=== PATIENT | male | born 1990 | race Caucasian/White ===

== ENCOUNTER 2017-02-21 03:14 | Inpatient (IN) | payer BC, OTHER ==
[~2017-02-21] VITALS: Ht 175.3 cm; Wt 78.9 kg
[2017-02-21] VITALS (27 sets, daily range): BP systolic 125–150; BP diastolic 75–100; PULSE 69–143; TEMP 36.6–37.3; O2SAT 92–100; Ht 175.3 cm; Wt 78.9 kg
[2017-02-21] MEDS ORDERED: RAPID SEQUENCE INDUCTION BAG ONE (03:21)
[2017-02-21] MEDS ORDERED: PROPOFOL IV EMULSION 10 MG/ML 100 ML VIAL IV ONE (03:33)
[2017-02-21] MEDS ORDERED: ASPI-390 PO (03:41)
[2017-02-21] MEDS ORDERED: IBUP-1050 PO (03:41)
[2017-02-21] MEDS ORDERED: PROPOFOL IV EMULSION 10 MG/ML 20 ML VIAL IV ONE (03:42)
[2017-02-21] MEDS ORDERED: PIPERACILLIN/TAZOBACTAM 4.5 GM/100ML D5W IV STA (04:05)
[2017-02-21 04:12] LABS: MEAN CELL VOLUME 84.1 fL (80-100); MEAN CORPUSCULAR HEMOGLOBIN 29.8 pg (25-34); MEAN CORPUSCULAR HGB CONC 35.4 g/dl (32-36); MEAN PLATELET VOLUME 10.1 fL (7.4-10.4); PLATELET COUNT 299 K/uL (130-400); RED BLOOD COUNT 5.71 M/uL (4.7-6.1)
[2017-02-21 04:22] LABS: ALT/SGPT 53 U/L (12-78); AST/SGOT 21 U/L (15-37); BLOOD UREA NITROGEN 6 mg/dl (7-18); BUN/CREATININE RATIO 6.9 (10-20); CALCIUM 7.8 mg/dl (8.5-10.1); CARBON DIOXIDE 24 mmol/L (21-32); CHLORIDE 109 mmol/L (98-107); CREATININE 0.88 mg/dl (0.60-1.40); GLUCOSE 121 mg/dl (70-99); POTASSIUM 3.3 mmol/L (3.5-5.1); SODIUM 142 mmol/L (136-145)
[2017-02-21 04:25] LABS: ALKALINE PHOSPHATASE 79 U/L (45-117)
[2017-02-21] MEDS ORDERED: FENTANYL CITRATE INJ 50 MCG/1 ML 2 ML VIAL IV PRN (04:30)
[2017-02-21] MEDS ORDERED: MAGNESIUM HYDROXIDE SUSP 30 ML UDC PO PRN (04:30)
[2017-02-21] MEDS ORDERED: ONDANSETRON INJ 2 MG/ML 2 ML VIAL IV PRN (04:30)
[2017-02-21] MEDS ORDERED: POTASSIUM CHLORIDE 10 MEQ / 100ML WTR IV ONE (04:30)
[2017-02-21] MEDS ORDERED: LORAZEPAM 2 MG/ML 1 ML VIAL IV PRN (04:30)
[2017-02-21] MEDS ORDERED: ALUMINUM/MAGNESIUM/SIMETH (MAALOX MAX) 30 ML UDC PO PRN (04:30)
[2017-02-21] MEDS ORDERED: ACETAMINOPHEN 325 MG TAB PO PRN (04:30)
[2017-02-21] MEDS ORDERED: MIDAZOLAM 125MG/250ML D5W 250 ML IV PRN (04:31)
[2017-02-21 04:36] LABS: ISTAT ARTERIAL BLOOD GAS HCO3 24 meq/L (19-24); ISTAT ARTERIAL BLOOD GAS PCO2 43 mmHg (35-46); ISTAT ARTERIAL BLOOD GAS PO2 > 420 mmHg (80-95); ISTAT ARTERIAL BLOOD GAS pH 7.36 (7.35-7.45); ISTAT CARBON DIOXIDE 26 mEq/l (24-31)
[2017-02-21 04:43] LABS: ACETAMINOPHEN < 2 ug/ml (10-30)
[2017-02-21] MEDS ORDERED: SODIUM CHLORIDE 0.9% 1000ML 1,000 ML IV SCH (04:45)
--- NOTE | 2017-02-21 04:59 | History and Physical ---
History & Physical Date & Time of Service: Feb 21, 2017 at 04:47 Chief Complaint: alochol Primary Care Physician: No Doctor, Assigned History of Present Illness Source: family (brother) The patient is a 26-year-old male that any past medical history previously emergency with acute alcohol intoxication. The patient is intubated at this time, not such that history is obtained from his brother Roldan, who also lives with Sandro. His brother states that Sandro was in his usual state of health this evening. After he arrived home the 2 of them had an after work beer. David was brother and went to the bathroom and upon his arrival back in the living room, he noted that his brother was chugging an entire bottle of Rum. Roldan requested that his brother trying to throw up, otherwise there will be problems however Sandro refused. Over time Sandro became progressively more more somnolent and was beginning to stumble and eventually passed out. Initially he was breathing and appeared comfortable, and his brother turned him over and put him in the recovery position. However over a period of approximately 30 minutes, he noticed that Sandro was having episodes of apnea, and was seeming to have more difficult in breathing. He then started vomiting and vomitus came out of both his mouth and his nose. EMS was called and Sandro was brought to the hospital for further evaluation. Of note, Roldan states that Sandro's behavior is extremely out of character. However he did note that whenever Sandro drinks, he seems to have difficulty controlling the amount that he drinks. However and he states that Sandro does not drink frequently. He is unaware of any life stressors for Sandro at this time. At no point did Sandro express any intent to harm himself or any suicidal ideation. At any history of drug or alcohol abuse, and has never has never been diagnosed psychiatric condition. In the ED intubation was a challenge, as there was copious amounts of vomitus in the airway, even following intubation it was noted that there were old or kernels being aspirated from the tube. The ET-tube had to be removed and reinserted twice. Was markedly distended on arrival, and NG and OG tube are both attempted but were unsuccessfully passed. Emergency Department spoken to the critical care service and the decision made to admit the patient to the intensive care unit for further treatment. Past Medical/Surgical History Lens injury to left eye, secondary to trauma Lens replacement Family History Noncontributory Social History Smoking Status: Never Smoker Smokeless Tobacco Use: No Alcohol Use: heavy Drug Use: other (unknown) Marital Status: single Housing status: lives with family (Brother) Occupational Status: employed Immunizations History of Influenza Vaccine: Unknown History of Tetanus Vaccine?: Unknown History of Pneumococcal: Unknown History of Hepatitis B Vaccine: Unknown Multi-Drug Resistant Organisms History of MDRO: No Allergies Coded Allergies: No Known Allergies (Unverified , 02/21/17) Home Medications Scheduled PRN Gvdhmuk-Afiogbmpkfzya-Fglznmgl (Excedrin Migraine), 1 DOSE PO DIRECTED PRN for Headache Ibuprofen (Advil), 200-600 MG PO Q4H PRN for Pain Review of Systems 10 point Review of systems could not be obtained as the patient is sedated and intubated Physical Exam Vital Signs Date Time Temp Pulse Resp B/P (MAP) Pulse Ox O2 Delivery O2 Flow Rate FiO2 02/21/17 04:32 30 02/21/17 04:21 36.5 73 12 127/95 98 Mechanical Ventilator 30 02/21/17 03:41 113 General Appearance: WD/WN, no apparent distress Head: normocephalic, atraumatic Eyes: + pertinent finding (Aniscora; abnormal lens left eye, secondary to previous surgery) ENT: + pertinent finding (difficult to assess as patient is intubated) Neck: supple, no adenopathy, no JVD Respiratory/Chest: chest non-tender, + pertinent finding (markedly diminished breath sounds on the left side with coarse breath sounds on the left) Cardiovascular: regular rate, rhythm, no gallop, no murmur Abdomen/GI: normal bowel sounds, non tender, soft Back: no CVA tenderness, no muscle spasm Extremities/Musculoskelatal: no calf tenderness, no pedal edema Neurologic/Psych: + pertinent finding (sedated; CAM ICU could not be assessed; RASS -4) Skin: normal color, warm/dry, no rash Lymphatic: no adenopathy Diagnostics Laboratory Results Results Past 24 Hours Test 02/21/17 03:40 02/21/17 03:50 02/21/17 04:22 02/21/17 04:37 Range/Units White Blood Count 8.00 4.8-10.8 K/uL Red Blood Count 5.71 4.7-6.1 M/uL Hemoglobin 17.0 14.0-18.0 g/dL Hematocrit 48.0 42-52 % Mean Corpuscular Volume 84.1 80-100 fL Mean Corpuscular Hemoglobin 29.8 25-34 pg Mean Corpuscular Hemoglobin Concent 35.4 32-36 g/dl RDW Standard Deviation 38.0 36.4-46.3 fL RDW Coefficient of Variation 12.6 11.5-14.5 % Platelet Count 299 130-400 K/uL Mean Platelet Volume 10.1 7.4-10.4 fL Sodium Level 142 136-145 mmol/L Potassium Level 3.3 3.5-5.1 mmol/L Chloride Level 109 98-107 mmol/L Carbon Dioxide Level 24 21-32 mmol/L Anion Gap 9.0 3-11 mmol/L Blood Urea Nitrogen 6 7-18 mg/dl Creatinine 0.88 0.60-1.40 mg/dl Estimated GFR () 138.4 Estimated GFR (Non- 119.4 BUN/Creatinine Ratio 6.9 10-20 Random Glucose 121 70-99 mg/dl Calcium Level 7.8 8.5-10.1 mg/dl Total Bilirubin 0.5 0.2-1 mg/dl Direct Bilirubin 0.1 0-0.2 mg/dl Aspartate Amino Transf (AST/SGOT) 21 15-37 U/L Alanine Aminotransferase (ALT/SGPT) 53 12-78 U/L Alkaline Phosphatase 79 45-117 U/L Total Protein 7.7 6.4-8.2 gm/dl Albumin 4.4 3.4-5.0 gm/dl Salicylates Level < 1.7 2.8-20 mg/dl Acetaminophen Level < 2 10-30 ug/ml Ethyl Alcohol mg/dL 473.0 0-3 mg/dl Bedside Blood Gas pH (LAB) 7.36 7.35-7.45 Bedside Blood Gas pCO2 (LAB) 43 35-46 mmHg Bedside Blood Gas pO2 (LAB) > 420 80-95 mmHg Bedside Blood Gas HCO3 (LAB) 24 19-24 meq/L Bedside Blood Gas Total CO2 26 24-31 mEq/l Bedside Blood Gas Base Excess (LAB) -1.0 -9-1.8 meq/L Bedside Blood Gas O2 Saturation 100.0 90-95 % Microbiology Results 02/21/17 Blood Culture, Ordered Pending 02/21/17 Blood Culture, Ordered Pending 02/21/17 Blood Culture, Ordered Pending 02/21/17 Blood Culture, Ordered Pending 02/21/17 MRSA DNA Surveillance Screen, Ordered Pending Diagnostic Radiology Marked past location of left lung field Impression Assessment and Plan 26-year-old male being admitted to the intensive care unit for acute alcohol intoxication with secondary aspiration pneumonia versus pneumonitis. His problem list is as follows: 1 - acute alcohol intoxication 2 - aspiration pneumonia versus aspiration pneumonitis 3 - acute hypoxemic respiratory failure 4 - hypokalemia 5 - hyperglycemia 6 - hypocalcemia Our plan for him is as follows: NEUROLOGICAL - GCS: 3 CAM ICU could not be obtained as the patient is intubated and sedated - Sedation: Versed infusion - RASS: Goal -1 - Pain regimen: Fentanyl 25 mcg q1h PRN Pain CARDIAC - BP: 127/95 MAP: Goal > 65 - Vasopressor support: None indicated at this time - IV Fluids: NSS bolus in the ED Will start NSS + 20 mEq KCl RESPIRATORY - Intubated and mechanically ventilated AC Mode: Rate 12; FiO2 30%; PEEP 5; VT 550 Aspiration Pneumonia - IV Zosyn 3.375 TID - DuoNeb's every 4 hours - Per ICU team, may require bronchoscopy for extensive emesis being aspiration with solid contents noted to be coming out of ET tube GASTROINTESTINAL - Diet: NPO - GI Prophylaxis: Ranitidine 150 mg BID - Bowel regimen: Monitor for BM - OG and NG tube insertion was attempted multiple times in the ER and was unsuccessful; will re-attempt later today RENAL//ENDOCRINE - Fluid Balance: Monitor I/O - Cr: 0.88, Baseline unknown - Electrolytes: K 3.3 --> 2 x 10 mEq K-riders in the ED; will continue with NSS + 20 mEq KCl maintenance Ca 7.8 --> 1 g Calcium Gluconate - IV Fluids: NSS bolus int he ED NSS + 20 mEq KCl Maintenance - BS, monitor q6h HEME/ID - Tmax: Afebrile WBC: 8 - Hb/Hct 17/48 - Blood cultures pending - Antibiotics: Zosyn 3.375 TID Day 0 - DVT Prophylaxis: Heparin 5000 U TID LINES/IV ACCESS - 2 x 18 G in left arm - Hernandez catheter inserted to gravity CODE STATUS - Full Code DISPOSITION - OT/PT Ordered - ICU Attending Addendum: I have physically seen and examined this patient, have supervised the medical residents activities, and agree with the H&P as noted above with the following exceptions as noted. The patient is sedated, intubated and on the ventilator. HEENT--PERRL, EOMI, mucous membranes and oropharynx dry. Neck-- no JVD or bruits, thyroid normal, trachea midline, no adenopathy. Heart--normal S1 and S2, no extra beats, no murmurs, rubs or gallops. Lungs--coarse breath sounds bilaterally. Abdomen--normal bowel sounds and soft, mildly distended and tympanitic, no hernias or masses, no organomegaly. Extremities--no cyanosis, clubbing or edema. There are good distal pulses b/l. Dermatologic--normal skin turgor, normal color, warm and dry, no abnormal lymph nodes, no rash. Neurologic--cranial nerves II through XII grossly intact, motor and sensory examination normal. Rheumatologic--deferred Psychiatric--deferred Assessment and Plan: Acute respiratory failure with hypoxemia/aspiration pneumonitis/acute alcohol intoxication-- Admitted to ICU with a vent settings AC, rate 12, tidal volume 550, FiO2 30%, and PEEP of 5. Zosyn 3.375 mg IV every 6 hours. Will likely need bronchoscopy as corn and other partially digested foods were found by ED staff during intubation. Famotidine 20 mg IV every 12 hours. Ordered 10 mEq K- riders in the ED 2. Normal saline with KCl 20 mEq at 100 ML's per hour. Serial laboratories to include daily CBC with differential, chemistry profile, magnesium level, ABG. Versed infusion for sedation. Fentanyl IV when necessary for additional sedation and/or pain. Level of Care Critical Care Advanced Directives Existing Advance Directive: No Existing Living Will: No Existing Power of Data Steward: No Resuscitation Status FULL RESUSCITATION VTE Prophylaxis VTE Risk Assessment Done? Y/N: Yes Risk Level: Moderate Given or contraindicated: SCD's Note Total Time: Critical Care 30 - 74 minutes (Duonebs every 4 hours while awake and every 2 hours when necessary.)
[2017-02-21] MEDS ORDERED: CALCIUM GLUCONATE 10% 1,000 MG in SODIUM CHLORIDE 0.9% 50ML 50 ML IV SCH (05:30)
[2017-02-21] MEDS ORDERED: PIPERACILL/TAZOBAC CONSULT ACTIVE PRN (05:45)
[2017-02-21] MEDS: NSS + 20MEQ KCL 1000ML 1,000 ML IV SCH ×3 (05:57→20:10)
[2017-02-21] MEDS ORDERED: HEPARIN SOD 5000 UNIT/0.5 ML CARP SQ SCH (06:00)
[2017-02-21 06:01] LABS: PROTHROMBIN TIME (PATIENT) 10.7 SECONDS (9.0-12.0)
[2017-02-21 06:09] LABS: MAGNESIUM 2.4 mg/dl (1.8-2.4)
[2017-02-21] MEDS ORDERED: ACETAMINOPHEN IV 100 ML IV PRN (06:45)
[2017-02-21] MEDS ORDERED: INFLUENZA ADMINISTRATION CHARGE ONE (06:45)
[2017-02-21] MEDS ORDERED: INFLUENZA VIRUS QUAD VACCINE 0.5 ML SYR IM. ONE (06:45)
--- NOTE | 2017-02-21 07:12 | DIAGNOSTIC IMAGING REPORT ---
CHEST ONE VIEW PORTABLE CLINICAL HISTORY: Post intubation. COMPARISON STUDY: No previous studies for comparison. FINDINGS: The tip of the endotracheal tube is 2.2 cm above the lokesh. An additional tube projects over the upper mediastinum, just to the left of midline. This may reflect a nasogastric tube. The position of the tube is not clear on this exam but this may be within the proximal thoracic esophagus. Left perihilar opacity is noted with left basilar opacity, with air bronchograms. There is also indistinctness of the aortic knob with left upper lobe opacity. Right infrahilar opacity is noted. There is no evidence of pulmonary edema. Cardiac size is at the upper limits of normal and accentuated on this portable supine exam. IMPRESSION: 1. Tip of endotracheal tube 2.2 cm above the lokesh. 2. Additional tube projecting over the upper mediastinum, just to the left of midline. This may reflect a nasogastric tube. The position of the tube is not clear on this exam but may be within the proximal thoracic esophagus. Repositioning is recommended. 3. Extensive bilateral opacities, greater on the left. The distribution suggests aspiration. 4. Mediastinal widening with indistinctness of the aortic knob. This could be technical or related to consolidation. However, radiographic follow up is recommended. Electronically signed by: Loc Lee M.D. 02/21/2017 7:10 AM Dictated Date/Time: 02/21/2017 7:02 AM
[2017-02-21] MEDS: ALBUT/IPRATROP 3MG/0.5MG NEB 3 ML VIAL INH SCH ×4 (07:26→23:18)
--- NOTE | 2017-02-21 07:29 | EMERGENCY ROOM VISIT NOTE ---
History Report prepared by Mora: Jose Ramon Tapia Under the Supervision of: Dr. Chey Everett D.O. First contact with patient: 03:16 Chief Complaint: ALCOHOL OVERDOSE Stated Complaint: ALCOHOL OVERDOSE, ASPIRATION INTO AIRWAY Nursing Triage Summary: pts family member states pt drank 2/3 to a 3/4 of a 750 ml bottle of kradaphnieen rum. pt arrived via ems unconsious. gasping breaths. with brown oral emesis. History of Present Illness The patient is a 26 year old male who presents to the Emergency Room for an alcohol overdose occurring around 0030 this morning. Per EMS, the patient drank 75% of a 750ml bottle of 95 proof rum in about a minute. Per the EMS, the patient has been vomiting, unresponsive, and wheezing. The brother states that the patient originally drank one drink of rum and coke, and this is normal for him. However, afterwards the patient took the bottle and chugged it and would not put it down. The brother tried to get the patient to vomit, however he was unsuccessful. The patient has no psychiatric history, and he has no medical history other than a left eye injury in the past. Source of History: patient Onset: 0030 Position: other (global) Quality: other (alcohol overdose) Associated Symptoms: + vomiting Note: Associated symptoms: unresponsive and wheezing Review of Systems See HPI for pertinent positives & negatives. A total of 10 systems reviewed and were otherwise negative. Past Medical & Surgical Medical Problems: (1) Alcohol overdose (2) Aspiration into airway Social History Smoking Status: Current Every Day Smoker Smokeless Tobacco Use: No Drug Use: other (unknown) Marital Status: single Occupation Status: employed Current/Historical Medications Scheduled PRN Xcgtnfa-Qsqjzbozjamzg-Mufbxiem (Excedrin Migraine), 1 DOSE PO DIRECTED PRN for Headache Ibuprofen (Advil), 200-600 MG PO Q4H PRN for Pain Allergies Coded Allergies: No Known Allergies (Unverified , 02/21/17) Physical Exam Vital Signs Date Time Temp Pulse Resp B/P (MAP) Pulse Ox O2 Delivery O2 Flow Rate FiO2 02/21/17 04:21 36.5 73 12 127/95 98 Mechanical Ventilator 30 02/21/17 03:41 113 Physical Exam Gen.: The patient is vomiting and appears to be in moderate respiratory distress with tachypnea. He is unresponsive to verbal and painful stimuli. HEENT: Head - normocephalic and atraumatic Pupils are 3 mm on the right and sluggishly responsive to light. He has a prosthesis in the left eye. Extraocular eye muscles are intact, and sclera are anicteric. Nose - moist nasal mucosa without discharge. Mouth - moist buccal mucosa. Oropharynx is nonerythematous and there is no tonsillar exudate or edema noted. Neck: Supple; no cervical lymphadenopathy appreciated Heart: Tachycardic rate and regular rhythm. There is a normal S1 and S2 with no murmurs, clicks, or gallops appreciated. Lungs: Clear to auscultation bilaterally with no wheezes, rales, or rhonchi. Abdomen: Soft, completely nontender, nondistended, with good bowel sounds. There are no palpable pulsatile masses or hepatosplenomegaly. There is no guarding, rigidity, or rebound noted. Extremities: No evidence of cyanosis, clubbing, or edema. There are easily palpable peripheral pulses. Skin: Pale, warm and dry with good turgor and no rashes. Medical Decision & Procedures ER Provider Diagnostic Interpretation: X-ray results as stated below per interpretation by me: CHEST ONE VIEW PORTABLE 1: The initial intubation appeared to be in the right mainstem bronchus. With obvious opacities in the left lung and underinflation of the left lung. There is a huge gastric bubble. CHEST ONE VIEW PORTABLE 2: The to him was pulled back proximally 2 cm but still appeared to be in the right mainstem bronchus. There was obvious aspiration evidenced by opacities bilaterally. The gastric bubble remains huge. CHEST ONE VIEW PORTABLE 3: The endotracheal tube was 2 cm above the lokesh. It appears that the OG tube is just to the left of the trachea presumably in the midesophagus. There are bilateral opacities consistent with aspiration. The stomach appears to be slightly decompressed. Laboratory Results 02/21/17 03:40 02/21/17 03:40 Test 02/21/17 03:40 02/21/17 03:50 02/21/17 04:22 Red Blood Count 5.71 M/uL (4.7-6.1) Mean Corpuscular Volume 84.1 fL (80-100) Mean Corpuscular Hemoglobin 29.8 pg (25-34) Mean Corpuscular Hemoglobin Concent 35.4 g/dl (32-36) RDW Standard Deviation 38.0 fL (36.4-46.3) RDW Coefficient of Variation 12.6 % (11.5-14.5) Mean Platelet Volume 10.1 fL (7.4-10.4) Prothrombin Time 10.7 SECONDS (9.0-12.0) Prothromb Time International Ratio 1.0 (0.9-1.1) Anion Gap 9.0 mmol/L (3-11) Estimated GFR () 138.4 Estimated GFR (Non- 119.4 BUN/Creatinine Ratio 6.9 (10-20) Calcium Level 7.8 mg/dl (8.5-10.1) Magnesium Level 2.4 mg/dl (1.8-2.4) Total Bilirubin 0.5 mg/dl (0.2-1) Direct Bilirubin 0.1 mg/dl (0-0.2) Aspartate Amino Transf (AST/SGOT) 21 U/L (15-37) Alanine Aminotransferase (ALT/SGPT) 53 U/L (12-78) Alkaline Phosphatase 79 U/L (45-117) Total Protein 7.7 gm/dl (6.4-8.2) Albumin 4.4 gm/dl (3.4-5.0) Salicylates Level < 1.7 mg/dl (2.8-20) Acetaminophen Level < 2 ug/ml (10-30) Ethyl Alcohol mg/dL 473.0 mg/dl (0-3) Bedside Blood Gas pH (LAB) 7.36 (7.35-7.45) Bedside Blood Gas pCO2 (LAB) 43 mmHg (35-46) Bedside Blood Gas pO2 (LAB) > 420 mmHg (80-95) Bedside Blood Gas HCO3 (LAB) 24 meq/L (19-24) Bedside Blood Gas Total CO2 26 mEq/l (24-31) Bedside Blood Gas Base Excess (LAB) -1.0 meq/L (-9-1.8) Bedside Blood Gas O2 Saturation 100.0 % (90-95) Laboratory results per my review. Medications Administered Medications (Trade) Dose Ordered Sig/Jade Route Start Time Stop Time Status Last Admin Dose Admin Miscellaneous (Rapid Sequence Induction Bag) 1 ea STK-MED ONCE N/A 02/21/17 03:21 02/21/17 03:22 DC 02/21/17 04:19 1 EA Propofol (Diprivan Iv Emulsion 100ml Vial) 1 dose STK-MED ONCE IV 02/21/17 03:33 02/21/17 03:34 DC 02/21/17 04:18 1 DOSE Propofol (Diprivan Iv Emulsion 20ml Vial) 200 mg STK-MED ONCE IV 02/21/17 03:42 02/21/17 03:43 DC 02/21/17 04:19 50 MG Piperacillin Sod/ Tazobactam Sod (Zosyn Iv) 4.5 gm NOW STAT IV 02/21/17 04:05 02/21/17 04:06 DC 02/21/17 04:15 4.5 GM Potassium Chloride (Kcl 10 Meq / Wtr) 20 meq STK-MED ONCE IV 02/21/17 04:30 02/21/17 04:31 DC 02/21/17 04:40 20 MEQ Procedure Etomidate, propofol bolus, propofol drip, Zosyn, normal saline drip Endotracheal Intubation Indication respiratory failure and vomiting. The patient was on 100% oxygen via NRB with nasal airway in place prior to the procedure. Suction, airway equipment, RSI drugs, respiratory equipment, and appropriate personnel were prepared prior to the initiation of the procedure. A time out was taken. The patient was sedate enough that he did not require any additional sedation The airway was easily visualized utilizing a glide scope. The patient had additional episodes of vomiting. We had to suction Imbler kernels from the patient's vocal cords and trachea. A 8-0 size ETT tube was placed atraumatically to 26 cm using standard technique. The cuff inflated without signs of malfunction. There were bilateral breath sounds, positive colormetric change, no gastric sounds, and post procedure pulse oximetry was 88% . Post intubation sedation was administered using etomidate IV. There were no complications. Endotracheal Intubation Indication: inadvertent extubation. The patient was on 97% oxygen via BVM prior to the procedure. Suction, airway equipment, RSI drugs, respiratory equipment, and appropriate personnel were prepared prior to the initiation of the procedure. A time out was taken. Induction was performed with IV propofol bolus. After observing the clinical benefit of the medications, the airway was easily visualized utilizing a glide scope. A 8-0 size ETT tube was placed atraumatically to 24 cm using standard technique. The cuff inflated without signs of malfunction. There were bilateral breath sounds, positive colormetric change, no gastric sounds, a good capnography waveform, and post procedure pulse oximetry was 97%. Post intubation sedation was administered using Propofol There were no complications. ED Course 0316: Past medical records reviewed. The patient was evaluated in room B4. A complete history and physical exam was performed. The patient was observing the radiation monitor. He was noted to be in moderate respiratory distress with significant tachypnea. The decision was made for endotracheal intubation. He was moved to B1. 0321: Equipment was prepared for intubation. A second IV lock was established. Once the patient was successfully intubated, he was given 30 mg of IV etomidate. He was observing the radiation monitor and pulse oximeter. His O2 saturations remained marginal. Chest x-ray showed evidence of a right mainstem intubation with evidence of aspiration in the left lung and a huge gastric bubble. The tube was pulled back. PEEP was added to the ventilator settings. The patient was aggressively suctioned. O2 saturations remained at 78-84. At this time, the vocal cords were visualized and it appeared that the endotracheal tube had become dislodged. This one was removed. The patient received bag valve ventilation until O2 saturations were in the high 90s. Repeat endotracheal intubation was performed after the patient received a bolus of diprovan. follow-up chest x-ray was performed. 0352: Discussed the patient's case with Dr. Shanks, [facility]. The blood alcohol content was excessively high. 0357: Discussed the patient's case with Dr. Jasmine, [facility] [place]. The patient will be evaluated for further management. 0405: Zosyn 4.5mg IV 0450: I reevaluated the patient. Medical Decision The patient is a 26 year old male who presents to the ED with an alcohol overdose. Differential diagnosis includes alcohol overdose, drug intoxication, aspiration, and respiratory failure. Lab results show: white blood cell count of 8, stable H&H, normal renal function , glucose 121, lactic acid 1.8, LFT are nromal, alcohol 473, salicylate lass than 1.7, acetaminophen less than 2, and normal coags. The patient presents to the emergency department in an unresponsive state with respiratory failure. This required emergent endotracheal intubation the and had significant food in his airway. This was removed with suction. The patient was observed closely and his status was reviewed with his brother. Brother was in contact with the parents. The patient was started on IV Zosyn for aspiration. He remains hemodynamically stable. He will be admitted to ICU. Consults Time Called: 035 Consulting Physician: Dr. Shanks, [employer] [facility] Returned Call: [phone] Discussed the patient's case with Dr. Shanks, [employer] [facility]. Additional Consults: Time Called: 035 Consulted Physician: Dr. Jasmine Returned Call: 035 Additional Comments: Discussed the patient's case with Dr. Jasmine, [facility] [place]. The patient will be evaluated for further management. Impression Primary Impression: Aspiration into airway Additional Impression: Alcohol overdose Critical Care I have personally spent greater than 90 minutes of critical care time in the direct management of this patient. This includes bedside care, interpretation of diagnostic studies, and testing, discussion with consultants, patient, and family members, and other required patient management activities. This 90 minutes is in excess of all separately billable procedures. Scribe Attestation The scribe's documentation has been prepared under my direction and personally reviewed by me in its entirety. I confirm that the note above accurately reflects all work, treatment, procedures, and medical decision making performed by me. Departure Information Dispostion Being Evaluated By Hospitalist Referrals No Doctor, Assigned (PCP) Forms HOME CARE DOCUMENTATION FORM, IMPORTANT VISIT INFORMATION Patient Instructions My [facility] Health Problem Qualifiers Primary Impression: Aspiration into airway Encounter type: initial encounter Qualified Codes: T17.908A - Unspecified foreign body in respiratory tract, part unspecified causing other injury, initial encounter Additional Impression: Alcohol overdose Encounter type: initial encounter Injury intent: undetermined intent Qualified Codes: T51.94XA - Toxic effect of unspecified alcohol, undetermined, initial encounter
--- NOTE | 2017-02-21 07:46 | Critical Care Consultation ---
Critical Care Consultation Date of Consultation: Feb 21, 2017. Attending Physician: Baltazar Jasmine M.D. Reason for Consultation: Acute respiratory failure following severe alcohol intoxication. History of Present Illness I personally examined this patient, reviewed his clinical and laboratory data, interpret his x-ray and formulated further plan of care. In summary, the patient is a 26-year-old man without any significant medical or psychiatric history we will drunk entire bottle of rum after he returned with his brother to their apartment after work. Patient progressively got somnolent, vomited couple of times with gastric content coming from his mouth and nose. He was brought to [facility] emergency room. Patient was not able to protect his airway so he required to be intubated. He was suctioned of significant food material from endotracheal tube which needed to be changed twice. Patient was transferred critical ill to surgical intensive care unit for further management. Past Medical/Surgical History None Family History Not obtainable. Social History Patient works in [employer] business. He lives with his older brother an apartment. He drinks beer after work times per week. Smoking Status: Current Every Day Smoker Smokeless Tobacco Use: No Alcohol Use: heavy Drug Use: other (unknown) Marital Status: single Occupation Status: employed Allergies Coded Allergies: No Known Allergies (Unverified , 02/21/17) Home Medications Scheduled PRN Qcibcgz-Hfxntluyrgzii-Eztcaztl (Excedrin Migraine), 1 DOSE PO DIRECTED PRN for Headache Ibuprofen (Advil), 200-600 MG PO Q4H PRN for Pain Current Inpatient Medications Current Inpatient Medications Medications (Trade) Dose Ordered Sig/Jade Route Start Time Stop Time Status Last Admin Dose Admin Potassium Chloride/Sodium Chloride 1,000 ml @ 150 mls/hr Q6H40M IV 02/21/17 05:30 03/23/17 05:29 02/21/17 05:57 150 MLS/HR Fentanyl Citrate (Fentanyl Inj) 25 mcg Q1H PRN IV 02/21/17 04:30 03/07/17 04:29 Lorazepam (Ativan Inj) 1 mg Q6H PRN IV 02/21/17 04:30 03/23/17 04:29 Ondansetron HCl (Zofran Inj) 4 mg Q6H PRN IV 02/21/17 04:30 03/23/17 04:29 Albuterol/ Ipratropium (Duoneb) 3 ml Q4R INH 02/21/17 08:00 03/23/17 07:59 02/21/17 07:26 3 ML Midazolam HCl 250 ml @ 0 mls/hr Q0M PRN IV 02/21/17 04:31 03/23/17 04:30 Piperacillin Sod/ Tazobactam Sod 3.375 gm/Dextrose 115 ml @ 28.75 mls/ hr Q8H IV 02/21/17 08:00 02/28/17 07:59 Piperacillin Sod/ Tazobactam Sod (Consult) 1 ea UD PRN N/A 02/21/17 05:45 03/23/17 05:44 Famotidine 20 mg/ Dextrose 102 ml @ 200 mls/hr Q12H IV 02/21/17 07:00 03/23/17 06:59 Acetaminophen 100 ml @ 400 mls/hr Q8H PRN IV 02/21/17 06:45 03/23/17 06:44 Review of Systems Not obtainable as patient is drunk, intubated and sedated. Physical Exam Date Time Temp Pulse Resp B/P (MAP) Pulse Ox O2 Delivery O2 Flow Rate FiO2 02/21/17 07:23 30 02/21/17 06:15 97 20 100 02/21/17 06:01 69 12 136/91 (96) 98 02/21/17 06:00 36.6 80 12 136/91 (106) 100 Mechanical Ventilator 40 02/21/17 06:00 72 14 99 02/21/17 05:45 74 13 98 02/21/17 05:42 36.8 86 24 147/89 95 Mechanical Ventilator 30 02/21/17 05:31 40 02/21/17 05:30 90 24 92 02/21/17 05:29 94 27 147/89 (112) 92 02/21/17 05:23 30 02/21/17 04:56 74 132/92 97 02/21/17 04:32 30 02/21/17 04:21 36.5 73 12 127/95 98 Mechanical Ventilator 30 02/21/17 03:41 113 General Appearance: well-appearing, other (intubated and sedated.) Head: normocephalic, atraumatic Eyes: no discharge, EOMI, other (left pupil is equal secondary to remote trauma and surgical intervention. Right pupil is 3 mm in size and reactive to light.) ENT: normal ear exam Neck: normal range of motion, no tenderness, trachea midline, no stridor Respiratory: clear to percussion, other ( few scattered rhonchi) Cardiovasular: regular rate/rhythm, normal S1S2, no murmur Abdomen: non tender, normal bowel sounds, no rebound, no masses, no guarding, no organomegaly Back: normal inspection, no midline tenderness, no CVA tenderness Upper Extremities: no edema, no deformity, normal ROM Lower Extremities: no edema Neuro: other (intoxicated and sedated. Right pupil was reactive to light.) Laboratory Results Last 24 Hours Test 02/21/17 03:40 02/21/17 03:50 02/21/17 04:22 02/21/17 04:59 White Blood Count 8.00 K/uL Red Blood Count 5.71 M/uL Hemoglobin 17.0 g/dL Hematocrit 48.0 % Mean Corpuscular Volume 84.1 fL Mean Corpuscular Hemoglobin 29.8 pg Mean Corpuscular Hemoglobin Concent 35.4 g/dl RDW Standard Deviation 38.0 fL RDW Coefficient of Variation 12.6 % Platelet Count 299 K/uL Mean Platelet Volume 10.1 fL Prothrombin Time 10.7 SECONDS Prothromb Time International Ratio 1.0 Sodium Level 142 mmol/L Potassium Level 3.3 mmol/L Chloride Level 109 mmol/L Carbon Dioxide Level 24 mmol/L Anion Gap 9.0 mmol/L Blood Urea Nitrogen 6 mg/dl Creatinine 0.88 mg/dl Estimated GFR () 138.4 Estimated GFR (Non- 119.4 BUN/Creatinine Ratio 6.9 Random Glucose 121 mg/dl Calcium Level 7.8 mg/dl Magnesium Level 2.4 mg/dl Total Bilirubin 0.5 mg/dl Direct Bilirubin 0.1 mg/dl Aspartate Amino Transf (AST/SGOT) 21 U/L Alanine Aminotransferase (ALT/SGPT) 53 U/L Alkaline Phosphatase 79 U/L Total Protein 7.7 gm/dl Albumin 4.4 gm/dl Salicylates Level < 1.7 mg/dl Acetaminophen Level < 2 ug/ml Ethyl Alcohol mg/dL 473.0 mg/dl Bedside Blood Gas pH (LAB) 7.36 Bedside Blood Gas pCO2 (LAB) 43 mmHg Bedside Blood Gas pO2 (LAB) > 420 mmHg Bedside Blood Gas HCO3 (LAB) 24 meq/L Bedside Blood Gas Total CO2 26 mEq/l Bedside Blood Gas Base Excess (LAB) -1.0 meq/L Bedside Blood Gas O2 Saturation 100.0 % Bedside Lactic Acid Venous 1.82 mmol/L Test 02/21/17 05:05 Phosphorus Level 2.8 mg/dl Assessment & Plan 1. Severe alcohol intoxication. We'll continue total alcohol gets metabolized. Continue with folic acid and thiamine. 2. Acute respiratory failure for airway protection. Significant fomites and aspiration with food particles being suctioned from endotracheal tube. Bronchoscopy was performed which revealed diffusely inflamed mucosa, minimal secretions, no food particles. 3. Sinus tachycardia, no cardiac ischemia. We will continue with IV fluids and sedation. 4. Renal function is adequate. Replace electrolytes appropriately. 5. ID: No change antibodies to 3 days' course of Unasyn as patient had severe aspiration. 6. Hematology hemoglobin and platelet count is in the range. 7. Psychiatric: Unknown reason for such unusual behavior. No previous history of psychiatric disorder. We'll obtain psychiatric consultation when patient is awake for the interview. 8. Heparin for DVT prophylaxis. 9. GI: Pepcid in view of suspected alcohol-induced esophagitis/gastropathy. I had an extensive conversation about patient's clinical condition and further management plan with his PSA the bedside. Patient is full code. CCT 32 minutes exclusive bronchoscopy procedure.
[2017-02-21] MEDS: FAMOTIDINE IV INJ 20 MG in DEXTROSE 5% 100ML 100 ML IV SCH ×2 (07:57→20:10)
[2017-02-21] MEDS ORDERED: PIPERACILL/TAZOBAC IV 3.375 GM in DEXTROSE 5% 100ML 100 ML IV SCH (08:00)
[2017-02-21] MEDS: THIAMINE HCL INJ 100 MG in SYRINGE 9 ML IV SCH (08:54)
[2017-02-21] MEDS ORDERED: FoLIC ACID INJ 1 MG in SYRINGE 9.8 ML IM SCH (09:00)
[2017-02-21] MEDS ORDERED: RANITIDINE HCL SYRUP 150 MG/10 ML UDC PO SCH (09:00)
[2017-02-21] MEDS: AMPICILLIN/SULBACTAM SOD INJ 3,000 MG in SODIUM CHLORIDE 0.9% 100ML 100 ML IV SCH ×3 (09:03→20:10)
[2017-02-21 11:35] LABS: BENZODIAZEPINE, URINE POS (NEG); COCAINE,URINE NEG (NEG); PHENCYCLIDINE, URINE NEG (NEG)
[2017-02-21] MEDS: FoLIC ACID INJ 1 MG in SYRINGE 9.8 ML IV SCH (11:44)
--- NOTE | 2017-02-21 12:58 | Progress Note ---
Progress Note Date of Service Feb 21, 2017. Progress Note Procedure: Bronchoscopy. Indication: Acute respiratory failure, severe aspiration of gastric content. Sedation. Pre-existing midazolam drip 2 mg/h, 2 mg IV bolus 1 Olympus videobronchoscope was used. After appropriate sedation was obtained, the bronchoscope was inserted through the pre-existing endotracheal tube. Small amount of secretions were suctioned from tracheostomy. Attention was patent to the right upper, middle and lower lobes. Mucosa was inflamed, minimal whitish secretions. Left upper and lower lobes were examined. No food particles were found. Mucosa was inflamed with minimal secretions which were suctioned. Patient tolerated procedure well. I performed the entire procedure myself. Findings were conveyed to the family.
--- NOTE | 2017-02-21 18:33 | Progress Note ---
Progress Note Date of Service Feb 21, 2017. Progress Note f/u from early AM admission still on vent, sedated, but appearing to be doing well d/w dr de la o and greatly appreciate management no new issues updated parents severe EtOH intoxication w aspiration event (probable pneumonitis) and respiratory failure -stabilizing, continue unasyn, hopefully able to wean vent by tomorrow
--- NOTE | 2017-02-21 18:46 | Family Medicine Progress Note ---
Progress Note Date of Service Feb 21, 2017. Subjective Pt evaluation today including: conversation w/ family, physical exam, chart review, review of studies, review of inpatient medication list Voiding: harding catheter in place Mr. Mclaughlin has been sedated & intubated. His parents were at his bedside and conveyed their concerns regarding his recent behaviour. They would eventually like for him to see a psychiatrist which they believe will help prevent this from happening. They state he has a history of binge drinking, but never to this extent. Medications Current Inpatient Medications Medications (Trade) Dose Ordered Sig/Jade Route Start Time Stop Time Status Last Admin Dose Admin Potassium Chloride/Sodium Chloride 1,000 ml @ 150 mls/hr Q6H40M IV 02/21/17 05:30 03/23/17 05:29 02/21/17 11:47 150 MLS/HR Fentanyl Citrate (Fentanyl Inj) 25 mcg Q1H PRN IV 02/21/17 04:30 03/07/17 04:29 02/21/17 10:49 25 MCG Lorazepam (Ativan Inj) 1 mg Q6H PRN IV 02/21/17 04:30 03/23/17 04:29 Ondansetron HCl (Zofran Inj) 4 mg Q6H PRN IV 02/21/17 04:30 03/23/17 04:29 Albuterol/ Ipratropium (Duoneb) 3 ml Q4R INH 02/21/17 08:00 03/23/17 07:59 02/21/17 11:23 3 ML Midazolam HCl 250 ml @ 0 mls/hr Q0M PRN IV 02/21/17 04:31 03/23/17 04:30 Famotidine 20 mg/ Dextrose 102 ml @ 200 mls/hr Q12H IV 02/21/17 07:00 03/23/17 06:59 02/21/17 07:57 200 MLS/HR Acetaminophen 100 ml @ 400 mls/hr Q8H PRN IV 02/21/17 06:45 03/23/17 06:44 Thiamine HCl 100 mg/Syringe 10 ml @ 2 mls/min DAILY@0900 IV 02/21/17 09:00 03/23/17 08:59 02/21/17 08:54 2 MLS/MIN Ampicillin Sodium/ Sulbactam Sodium 3000 mg/Sodium Chloride 108 ml @ 216 mls/hr Q6H IV 02/21/17 09:00 02/24/17 08:59 02/21/17 14:38 216 MLS/HR Folic Acid 1 mg/ Syringe 10 ml @ 5 mls/min DAILY@0900 IV 02/21/17 09:00 03/23/17 08:59 02/21/17 11:44 5 MLS/MIN Objective Vital Signs Date Time Temp Pulse Resp B/P (MAP) Pulse Ox O2 Delivery O2 Flow Rate FiO2 02/21/17 16:00 37.3 114 24 132/81 (98) 100 Nasal Cannula 2.0 02/21/17 16:00 100 Nasal Cannula 2.0 02/21/17 15:28 30 02/21/17 14:20 30 02/21/17 14:00 117 20 128/76 (93) 100 Mechanical Ventilator 40 02/21/17 13:00 106 15 131/87 (104) 100 02/21/17 12:00 100 Mechanical Ventilator 40 02/21/17 12:00 40 02/21/17 12:00 105 16 135/85 (102) 100 Mechanical Ventilator 40 02/21/17 11:15 30 02/21/17 11:00 108 12 125/82 (89) 100 02/21/17 10:00 129 18 134/84 (101) 96 Mechanical Ventilator 40 02/21/17 09:10 139 29 139/88 (105) 99 Mechanical Ventilator 40 02/21/17 09:05 139 19 145/86 (105) 99 Mechanical Ventilator 40 02/21/17 09:00 140 23 147/90 (109) 100 Mechanical Ventilator 40 02/21/17 09:00 140 23 147/90 (114) 100 02/21/17 08:55 143 21 144/100 (115) 100 Mechanical Ventilator 40 02/21/17 08:50 135 24 150/92 (111) 100 Mechanical Ventilator 40 02/21/17 08:45 143 27 144/75 (98) 100 Mechanical Ventilator 40 02/21/17 08:00 37.0 86 12 138/80 (99) 100 Mechanical Ventilator 40 02/21/17 08:00 100 Mechanical Ventilator 40 02/21/17 08:00 Mechanical Ventilator 40 02/21/17 08:00 40 02/21/17 07:23 30 02/21/17 07:00 85 12 132/82 (95) 100 02/21/17 06:15 97 20 100 02/21/17 06:01 69 12 136/91 (96) 98 02/21/17 06:00 36.6 80 12 136/91 (106) 100 Mechanical Ventilator 40 02/21/17 06:00 72 14 99 02/21/17 05:45 74 13 98 02/21/17 05:42 36.8 86 24 147/89 95 Mechanical Ventilator 30 02/21/17 05:31 40 02/21/17 05:30 90 24 92 02/21/17 05:29 94 27 147/89 (112) 92 02/21/17 05:23 30 02/21/17 04:56 74 132/92 97 02/21/17 04:32 30 02/21/17 04:21 36.5 73 12 127/95 98 Mechanical Ventilator 30 02/21/17 03:41 113 Assessment and Plan 26-year-old male admitted for acute alcohol intoxication with secondary aspiration pneumonitis Acute alcohol intoxication resulting in acute hypoxemic respiratory failure - sedated, intubated and mechanically ventilated - AC Mode: Rate 12; FiO2 30%; PEEP 5; VT 550 - continue fluids - NSS + 20 mEq KCl at 150mls/hr - monitor I/Os - continue thiamine and folic acid - possible psych consult when awake to determine nature of this incident Aspiration pneumonia versus aspiration pneumonitis - ampicillin/sulbactum prophylaxis - duonebs q4h - NPO - continue famotidine 20mg q12h - blood cultures pending - bronchoscopy done today - inflamed mucosa, minimal secretions, but no food particles Hypokalemia - 3.3 today - given KCl in maintenance fluids - will recheck tomorrow Hypocalcemia - 7.8 today- 1g calcium gluconate given - will recheck tomorrow CODE STATUS - Full Code DISPOSITION - remains in ICU DVT Prophylaxis: - Heparin 5000 U TID Resident Tracking Resident Involvement: Resident Care Provided Care Provided: Adult Hospital Medicine
[2017-02-22] VITALS (26 sets, daily range): BP systolic 104–149; BP diastolic 60–99; PULSE 71–112; TEMP 36.6–37; O2SAT 93–99
[2017-02-22] MEDS: AMPICILLIN/SULBACTAM SOD INJ 3,000 MG in SODIUM CHLORIDE 0.9% 100ML 100 ML IV SCH ×2 (02:46→08:45)
[2017-02-22] MEDS: NSS + 20MEQ KCL 1000ML 1,000 ML IV SCH ×2 (02:46→07:45)
[2017-02-22] MEDS: ALBUT/IPRATROP 3MG/0.5MG NEB 3 ML VIAL INH SCH ×3 (03:31→11:27)
--- NOTE | 2017-02-22 07:08 | DIAGNOSTIC IMAGING REPORT ---
CHEST ONE VIEW PORTABLE HISTORY: 26 years-old Male aspiration acute aspiration. COMPARISON: Chest radiograph 02/21/2017 TECHNIQUE: Portable upright AP view of the chest FINDINGS: There has been interval removal of the endotracheal tube as well as removal of the tube projecting over the left upper mediastinum. Cardiac silhouette is within normal limits. There is improved aeration of the bilateral lungs with persistent hazy left greater than right patchy opacities, probably within the mid lung zones and lung bases. The previously described mediastinal widening is not appreciated. No pneumothorax or large pleural effusion. Bones are grossly intact. IMPRESSION: 1. Interval removal of the endotracheal tube and tube overlying the left upper chest. 2. Improved aeration of the lungs with persistent patchy left greater than right opacities suggesting aspiration pneumonitis or multifocal pneumonia. The above report was generated using voice recognition software. It may contain grammatical, syntax or spelling errors. Electronically signed by: Trent Cantrell M.D. 02/22/2017 7:07 AM Dictated Date/Time: 02/22/2017 7:04 AM
[2017-02-22] MEDS: FAMOTIDINE IV INJ 20 MG in DEXTROSE 5% 100ML 100 ML IV SCH (07:45)
[2017-02-22] MEDS: THIAMINE HCL INJ 100 MG in SYRINGE 9 ML IV SCH (07:46)
[2017-02-22] MEDS: FoLIC ACID INJ 1 MG in SYRINGE 9.8 ML IV SCH (07:46)
[2017-02-22 08:42] LABS: HEMATOCRIT 38.7 % (42-52); MEAN CELL VOLUME 85.1 fL (80-100); MEAN CORPUSCULAR HEMOGLOBIN 30.3 pg (25-34); MEAN CORPUSCULAR HGB CONC 35.7 g/dl (32-36); PLATELET COUNT 212 K/uL (130-400); RED BLOOD COUNT 4.55 M/uL (4.7-6.1); WHITE BLOOD COUNT 10.16 K/uL (4.8-10.8)
[2017-02-22 08:44] LABS: BUN/CREATININE RATIO 7.1 (10-20); CALCIUM 8.8 mg/dl (8.5-10.1); CREATININE 0.93 mg/dl (0.60-1.40); MAGNESIUM 1.7 mg/dl (1.8-2.4); PHOSPHORUS 2.1 mg/dl (2.5-4.9); POTASSIUM 3.4 mmol/L (3.5-5.1)
[2017-02-22] MEDS ORDERED: THIAMINE HCL 100 MG TAB PO SCH (09:00)
[2017-02-22] MEDS ORDERED: ACETAMINOPHEN 325 MG TAB PO PRN (09:00)
[2017-02-22] MEDS ORDERED: PANTOprazole SOD 40 MG TAB PO SCH (09:00)
--- NOTE | 2017-02-22 09:03 | Critical Care Progress Note ---
Critical Care Progress Note Date of Service Feb 22, 2017. ICU Day ICU Day Number: [address] Shanks Subjective Patient was seen at the bedside. No acute event overnight. Patient was extubated yesterday around 3pm. Patient complains of mild pain with swallowing. Had pudding yesterday and tolerated well. Currently on RA. Denies chest pain, SOB, palpitation, headache, abd pain, nausea, vomiting or any other symptoms. Objective Vital signs were reviewed GENERAL - Alert, well appearing, lying on bed, no acute distress HEAD - NC/AT EYES - PERRL with EOMI bilaterally. EARS - No deformities of external structures noted on gross examination bilaterally. MOUTH/OROPHARYNX - Without perioral cyanosis. Lips, buccal mucosa, and tongue normal and mucous membranes are moist. NECK - Supple LUNGS - Chest wall symmetric. Good air movement bilaterally. No wheezing or rhonchi was noted. CARDIAC - RRR, normal S1/S2. No murmur, rubs, or gallops appreciated. ABDOMEN - Soft, non-tender, normo-active bowel sounds, EXTREMITIES - No edema SKIN - Warm, dry, intact. NEUROLOGIC - A&Ox3. Speech normal. PSYCH - Mood and affect appropriate. Current SOFA Score SOFA Score Response (Comments) Value Platelets (x10) > 150 0 Bilirubin (mg/dL) < 1.2 0 [place] Coma Score 15 0 Level of Hypotension No Hypotension 0 Creatinine (mg/dL) < 1.2 0 Total 0 Assessment & Plan This is a 26 y/o male presented with alcohol overdose presented to the ED unconscious and needed to be intubated. Patient is extubated yesterday afternoon and doing well since then. Tolerating PO intake. Off fluid and will switch the IV meds to PO meds. Psych consult is placed given possible alcohol abuse and to determine any underlying psych problems. Patient agreeable to speak with psych. Patient is stable to be downgrade from ICU. Possible discharge today after psych evaluation, will deferred the decision to the hospitalist team. Neuro - * CAM ICU: NEGATIVE. * Acetaminophen 650mg q4h prn * Ativan 1mg prn Cardiac - * BP and HR are stable Respiratory - * Extubated yesterday and currently on room air * Bronchoscopy was performed yesterday and it was WNL * Patient is at risk for pneumonia, will continue Unasyn X3days. It can be stop if discharge today. Patient should be educated about s/s of pneumonia and when should return to the hospital GI - * Diet : regular diet * Protonix for GI prophylaxis RENAL/LYTES - * d/benita IVF since patient is tolerating PO intake well * Potassium, mag and phos were low, given supplement. * Continue thiamine and folic acid - * No Hernandez * Full bathroom privilege HEME - * Stable H&H ID - * Will continue Unasyn X3days. * Patient is at risk for pneumonia. It can be stop if discharge today. Patient should be educated about s/s of pneumonia and when should return to the hospital LINES/IV ACCESS - * PIVs intact PSYCH - * Consult psych for evaluation DVT PROPHYLAXIS - * Heparin * * * Resident Physician Supervision Note: I was present with Dr. Martin Lester during the history and exam. I discussed the case with the resident and agree with the findings and plan as documented in the note. In summary, patient was admitted yesterday with severe acute intoxication with alcohol. He vomited, aspirated, desaturated, was not able to protect his airway. Patient was intubated, was maintained on full mechanical vent support overnight. He was extubated yesterday. Uneventful night. Acute respiratory insufficiency secondary to aspiration pneumonitis has improved significantly. He does not appear to develop any bacterial infection. Oxygen was weaned to off. Patient was evaluated by psychiatric team. No obvious history of depression or anxiety. No indication for inpatient psychiatric admission. Patient will need outpatient follow up to help with coping mechanisms. Should patient developed fever, chills, purulent cough or shortness of breath he was advised to come back to emergency room to be evaluated for pneumonia. T < 30 min. MARY'S IGLOO II Score Date Score Was Generated: Feb 22, 2017 Consults & Procedures Consultants: psychiatrics Procedures: bronchoscopy Data Medications: Current Inpatient Medications Medications (Trade) Dose Ordered Sig/Jade Route Start Time Stop Time Status Last Admin Dose Admin Lorazepam (Ativan Inj) 1 mg Q6H PRN IV 02/21/17 04:30 03/23/17 04:29 Ondansetron HCl (Zofran Inj) 4 mg Q6H PRN IV 02/21/17 04:30 03/23/17 04:29 Albuterol/ Ipratropium (Duoneb) 3 ml Q4R INH 02/21/17 08:00 03/23/17 07:59 02/22/17 07:24 3 ML Acetaminophen 100 ml @ 400 mls/hr Q8H PRN IV 02/21/17 06:45 03/23/17 06:44 02/21/17 20:20 400 MLS/HR Ampicillin Sodium/ Sulbactam Sodium 3000 mg/Sodium Chloride 108 ml @ 216 mls/hr Q6H IV 02/21/17 09:00 02/24/17 08:59 02/22/17 02:46 216 MLS/HR Folic Acid (Folvite Tab) 1 mg QAM PO 02/22/17 09:00 03/24/17 08:59 Thiamine HCl (Vitamin B-1 Tab) 100 mg QAM PO 02/22/17 09:00 03/24/17 08:59 Pantoprazole Sodium (Protonix Tab) 40 mg BID PO 02/22/17 09:00 03/24/17 08:59 Vital Signs: Date Time Temp Pulse Resp B/P (MAP) Pulse Ox O2 Delivery O2 Flow Rate FiO2 02/22/17 07:30 Room Air 02/22/17 07:30 36.8 82 20 104/69 (81) 97 Room Air 02/22/17 07:24 104 18 98 Room Air 02/22/17 06:00 82 24 104/69 (81) 93 Room Air 02/22/17 04:00 95 28 110/60 (77) 95 Room Air 02/22/17 04:00 94 Room Air 02/22/17 03:31 84 18 99 Room Air 02/22/17 02:00 98 20 131/79 (96) 98 Room Air 02/22/17 00:01 37.0 107 20 149/99 (116) 96 Room Air 02/21/17 23:59 96 Room Air 02/21/17 23:18 106 18 99 Room Air 02/21/17 22:00 108 20 145/77 (99) 97 Room Air 02/21/17 20:05 122 18 99 Room Air 02/21/17 20:00 95 Room Air 02/21/17 20:00 36.8 101 18 132/80 (97) 94 Room Air 02/21/17 18:00 102 18 126/77 (93) 98 Room Air 02/21/17 16:00 37.3 114 24 132/81 (98) 100 Nasal Cannula 2.0 02/21/17 16:00 100 Nasal Cannula 2.0 02/21/17 15:28 30 02/21/17 14:20 30 02/21/17 14:00 117 20 128/76 (93) 100 Mechanical Ventilator 40 02/21/17 13:00 106 15 131/87 (104) 100 02/21/17 12:00 100 Mechanical Ventilator 40 02/21/17 12:00 40 02/21/17 12:00 105 16 135/85 (102) 100 Mechanical Ventilator 40 02/21/17 11:15 30 02/21/17 11:00 108 12 125/82 (89) 100 02/21/17 10:00 129 18 134/84 (101) 96 Mechanical Ventilator 40 02/21/17 09:10 139 29 139/88 (105) 99 Mechanical Ventilator 40 02/21/17 09:05 139 19 145/86 (105) 99 Mechanical Ventilator 40 02/21/17 09:00 140 23 147/90 (109) 100 Mechanical Ventilator 40 02/21/17 09:00 140 23 147/90 (114) 100 02/21/17 08:55 143 21 144/100 (115) 100 Mechanical Ventilator 40 02/21/17 08:50 135 24 150/92 (111) 100 Mechanical Ventilator 40 02/21/17 08:45 143 27 144/75 (98) 100 Mechanical Ventilator 40 Laboratory Results: Last 24 Hours Test 02/21/17 09:58 02/21/17 11:08 02/21/17 11:22 02/21/17 18:26 Lactic Acid Level 1.9 mmol/L Urine Opiates Screen NEG Urine Methadone, Qualitative NEG Urine Barbiturates NEG Urine Phencyclidine (PCP) Level NEG Ur Amphetamine/Methamphetamine NEG MDMA (Ecstasy) Screen NEG Urine Benzodiazepines Screen POS Urine Cocaine Metabolite NEG Urine Marijuana (THC) NEG Bedside Glucose 101 mg/dl 87 mg/dl Test 02/22/17 08:05 White Blood Count 10.16 K/uL Red Blood Count 4.55 M/uL Hemoglobin 13.8 g/dL Hematocrit 38.7 % Mean Corpuscular Volume 85.1 fL Mean Corpuscular Hemoglobin 30.3 pg Mean Corpuscular Hemoglobin Concent 35.7 g/dl RDW Standard Deviation 40.4 fL RDW Coefficient of Variation 12.9 % Platelet Count 212 K/uL Mean Platelet Volume 10.0 fL
[2017-02-22] MEDS ORDERED: POTASSIUM CHLORIDE 20 MEQ TABCR PO ONE (09:15)
[2017-02-22] MEDS ORDERED: POT PHOSPHATE MONOBASIC W/ SOD TAB PO ONE (09:15)
[2017-02-22] MEDS ORDERED: MAGNESIUM OXIDE 400 MG TAB PO ONE (09:15)
[2017-02-22] MEDS ORDERED: POTASSIUM CHLORIDE 10 MEQ TABCR PO ONE (11:00)
--- NOTE | 2017-02-22 11:49 | Psychiatric Consultation ---
Consultation Date of Consultation Feb 22, 2017. Identifying Data 26 yo male from [place], admitted overnight following alcohol OD. Chief Complaint "I don't drink often but I can't control myself when I do". History of Present Illness Sandro has no prior psych history. 0030 this morning he was having a few drinks with his brother after work. Per EMS, the patient drank 75% of a 750ml bottle of 95 proof rum in about a minute. Per the EMS, the patient has been vomiting, unresponsive, and wheezing. JORGE 473 on arrival to ED. He has no recollection of the event. He was intubated and there is evidence of aspiration pneumonia. He is now extubated with family at bedside (seen individually for assessment). He denies depression or anxiety. States he was seeing a therapist about 7 months ago for low motivation but denies other vegetative symptoms of depression. Urine tox was positive for benzos, possibly given prior to urine being obtained for medical treatment. He denies use of prescription medications. He drinks 3-4 drinks, every 3-4 days. 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 He denies that the ingestion was in any way self harm. Parents and sister confirm his account, no prior history of self-harm, deny any evidence this was a suicide attempt. Past Psychiatric History Current OP Treatment: no current treatment Access to a Gun: No Suicide Attempts: No Past Medication Trials none Past Medical/Surgical History History of Concussion/Seizure: No (1) Aspiration into airway (2) Alcohol overdose Allergies Allergies: Coded Allergies: No Known Allergies (Unverified , 02/21/17) Home Medications Scheduled PRN Ginhdeu-Jwscgyrqswplq-Vegtlpwd (Excedrin Migraine), 1 DOSE PO DIRECTED PRN for Headache Ibuprofen (Advil), 200-600 MG PO Q4H PRN for Pain Family History History of Suicide: No History of Substance Abuse: No Psychiatric History: Yes (depression on mom's side) Alcohol Use Alcohol Use In Past 12 Months: Yes Smoking Use Smoking Status: Current Every Day Smoker Substance History denied, "I don't have money for drugs" Personal History Childhood: raised locally, brother and sister Education: graduated from high school, started college ([employer]) 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 [employer] Relationship History: never Children: none Legal History: none Review of Systems Psych: denies symptoms other than stated above Constitutional: fatigue Cardiovascular: denied GI: some GI upset Neurologic: denied Remainder of 10 body systems also reviewed and denied other than noted above, did not appear SOB Examination Vital Signs Vital Signs Past 12 Hours Date Time Temp Pulse Resp B/P (MAP) Pulse Ox O2 Delivery O2 Flow Rate FiO2 02/22/17 11:29 71 18 99 Room Air 02/22/17 09:30 97 20 135/93 (107) 97 Room Air 02/22/17 08:00 Room Air 02/22/17 07:30 Room Air 02/22/17 07:30 36.8 82 20 104/69 (81) 97 Room Air 02/22/17 07:24 104 18 98 Room Air 02/22/17 06:00 82 24 104/69 (81) 93 Room Air 02/22/17 04:00 95 28 110/60 (77) 95 Room Air 02/22/17 04:00 94 Room Air 02/22/17 03:31 84 18 99 Room Air 02/22/17 02:00 98 20 131/79 (96) 98 Room Air 02/22/17 00:01 37.0 107 20 149/99 (116) 96 Room Air 02/21/17 23:59 96 Room Air Laboratory Results Last 24 Hours Test 02/21/17 18:26 02/22/17 08:05 Bedside Glucose 87 mg/dl White Blood Count 10.16 K/uL Red Blood Count 4.55 M/uL Hemoglobin 13.8 g/dL Hematocrit 38.7 % Mean Corpuscular Volume 85.1 fL Mean Corpuscular Hemoglobin 30.3 pg Mean Corpuscular Hemoglobin Concent 35.7 g/dl RDW Standard Deviation 40.4 fL RDW Coefficient of Variation 12.9 % Platelet Count 212 K/uL Mean Platelet Volume 10.0 fL Sodium Level 144 mmol/L Potassium Level 3.4 mmol/L Chloride Level 109 mmol/L Carbon Dioxide Level 24 mmol/L Anion Gap 11.0 mmol/L Blood Urea Nitrogen 7 mg/dl Creatinine 0.93 mg/dl Est Creatinine Clear Calc Drug Dose 121.4 ml/min Estimated GFR () 131.8 Estimated GFR (Non- 113.7 BUN/Creatinine Ratio 7.1 Random Glucose 121 mg/dl Calcium Level 8.8 mg/dl Phosphorus Level 2.1 mg/dl Magnesium Level 1.7 mg/dl Mental Examination During interview pt is: alert and oriented, cooperative Appearance: disheveled Eye contact is: fair Motor behavior is: no abnormal motor movements Speech: normal in rate, rhythm & volume Affect: constricted Mood is: other ("OK") Thought process: goal directed, clear, coherent Thought content: reality based without delusions Suicidal thought are: denied Homicidal thoughts are: denied Hallucinations: other (did not appear to be responding to internal stimuli) Cognition: attention grossly intact, language grossly intact Intelligence estimated to be: consistent with level of education Insight: limited Judgement: limited Impression / Recommendations Impression 26 yo male, hx of paradoxical disinhibition with ETOH, binge drinker. No evidence ingestion was self-harm. Recommendations there is no indication for acute inpatient psychiatric admission he is at risk for ETOH withdrawal given initial JORGE regardless of daily ingestion and would encourage use of ETOH withdrawal protocol it is recommend that he resume outpatient therapy for ongoing coping and have an outpatient D&A assessment. Family support these recs. He is agreeable and liaison will facilitate KENNEY/appt.
[2017-02-22] MEDS ORDERED: FLV1 PO (12:52)
[2017-02-22] MEDS ORDERED: THM100 PO (12:52)
[2017-02-22] MEDS ORDERED: AMOX875T PO (12:52)
--- NOTE | 2017-02-22 12:59 | Discharge Instructions ---
Discharge Instructions Date of Service Feb 22, 2017. Admission Reason for Admission: Alcohol Overdose, Aspiration Into Airway Discharge Discharge Diagnosis / Problem: Alcohol Overdose Discharge Goals Goal(s): Improve function Activity Recommendations Activity Limitations: resume your previous activity . Instructions / Follow-Up Instructions / Follow-Up You were admitted to [facility] due to an alcohol overdose that resulted in the need for you to be sedated and intubated. Due to the concern that you aspirated (meaning that it ended up in your lungs) some of your vomit, we gave you IV antibiotics to prevent this from developing into a pneumonia, and are discharging you home on 5 more days of augmentin, to be taken twice daily,. Please have your first dose tonight. We would also encourage you to continue taking folic acid and thiamine, as these both help the body recover from alcohol. We strongly recommend you stop drinking alcohol, especially given your history of being unable to control the amount that you drink.. You have a follow up appointment with Dr. Alston on SaturdayFebruary 25 at 9: 30 AM at the [facility] office located at [address] [place] [address]. If you need to change the timing of this appointment, you can call [phone]. Otherwise, you can continue your home medications as prescribed. Current Hospital Diet Patient's current hospital diet: Regular Diet Discharge Diet Recommended Diet: Regular Diet Pending Studies Studies pending at discharge: no Medical Emergencies . Who to Call and When: Medical Emergencies: If at any time you feel your situation is an emergency, please call 911 immediately. . Non-Emergent Contact Non-Emergency issues call your: Primary Care Provider . . "Provider Documentation" section prepared by Chiquita Alston. . VTE Core Measure Inpt VTE Proph given/why not?: SCD's
--- NOTE | 2017-02-22 13:09 | Discharge Summary ---
Discharge Summary Date of Service Feb 22, 2017. (Chiquita Alston M.D.) Discharge Summary Admission Date: Feb 21, 2017 at 04:31 Discharge Date: Feb 22, 2017 Discharge Disposition: Home Principal Diagnosis: Alcohol Overdose Immunizations: Have You Had Influenza Vaccine: Unknown History of Tetanus Vaccine?: Unknown History of Pneumococcal: Unknown History of Hepatitis B Vaccine: Unknown (Chiquita Alston M.D.) Medication Reconciliation New Medications: Amoxicillin & Pot Clavulanate (Augmentin 875-125 mg) 1 Tab Tab 1 TAB PO BID for 5 Days, #11 TAB Folic Acid (Folic Acid) 1 Mg Tab 1 MG PO QAM for 30 Days, #30 TAB Thiamine HCl (Vitamin B-1) 100 Mg Tab 100 MG PO QAM for 30 Days, #30 TAB Continued Medications: Faaryjp-Hfxokbikfqxhg-Kampbmlu (Excedrin Migraine) 1 Tab Tab 1 DOSE PO DIRECTED PRN for Headache Ibuprofen (Advil) 200 Mg Tab 200-600 MG PO Q4H PRN for Pain, TAB Discharge Exam Mr. Mclaughlin reports that he feels well today. He denies any headache, chest pain , SOB, n/v. He states that he has a sore throat and is coughing up some mucus, but is otherwise fine. Review of Systems: Constitutional: No fever, No chills Respiratory: + cough, + sputum, No shortness of breath Cardiovascular: No chest pain Abdomen: No pain, No nausea, No vomiting, No diarrhea, No constipation Physical Exam: General Appearance: WD/WN, no apparent distress Respiratory/Chest: chest non-tender, lungs clear, normal breath sounds, no respiratory distress, no accessory muscle use Cardiovascular: regular rate, rhythm, no edema, no gallop, no JVD, no murmur Abdomen / GI: normal bowel sounds, non tender, soft, no organomegaly, no pulsatile mass (Chiquita Alston M.D.) Hospital Course Mr. Mclaughlin was admitted to [facility] for alcohol overdose, resulting in apneic episodes, somnolence and vomiting. He was subsequently sedated, intubated and placed on a mechanical vent. His chest xray demonstrated a degree of aspiration , and therefore he was placed on Unaysn, and then changed to Augmentin to take for the next 5 days as a prophylaxis to prevent aspiration pneumonia. He was counselled on alcohol cessation, and continuing his thiamine and folic acid. He did not have a primary care physician in [place], and will be following up with me on Saturday to establish care. Total Time Spent: Less than 30 minutes This includes examination of the patient, discharge planning, medication reconciliation, and communication with other providers. (Chiquita Alston M.D.) Resident Physician Supervision Note: I interviewed and examined the patient. Discussed with Dr. Alston and agree with findings and plan as documented in the note. Any exceptions or clarifications are listed here: None Documented By: Danny Briceño feeling better notes that drinking binge was more a bad habit/mistake than any intent. family present and agree. discussed dangers of this behavior. discussed that if he were to have trouble not drinking after something like this then it would be worrisome for EtOH addiction vitals noted nad breathing unlabored no pallor or icterus acute respiratory failure due to severe EtOH intoxication and aspiration pneumonitis - improving. extubated. on room air. stable for home on PO abx. is planning on not drinking at all. set up for PCP locally. finish abx. (Danny Briceño D.Magali) Discharge Instructions Please refer to the electronic Patient Visit Report (Discharge Instructions) for additional information. (Chiquita Alston M.D.) Additional Copies To Chiquita Alston M.D.
[2017-02-23 15:15] LABS: HYDROXYETHYLFLURAZEPAM CONF NEGATIVE NG/ML (CUTOFF=50); HYDROXYMIDAZOLAM 1200 NG/ML (CUTOFF=50); HYDROXYTRIAZOLAM CONF NEGATIVE NG/ML (CUTOFF=50); TEMAZEPAM CONF NEGATIVE NG/ML (CUTOFF=50)
== END 2017-02-22 14:08 | disposition home or self-care (01) | DRG 917 ==
LOC: EDBD 03:14 → C.EDB 03:15 → C.MSICU 04:31 → ENRESERV 04:37
PROVIDERS: ADMIT Student in an Organized Health Care Education/Training Program; ATTEND Family Medicine
PROC: 0BH13EZ Insertion of Endotracheal Airway into Trachea, Percutaneous Approach (ICD-10-PCS; principal; 2017-02-21)
PROC: 0BJ18ZZ Inspection of Trachea, Via Natural or Artificial Opening Endoscopic (ICD-10-PCS; 2017-02-21)
PROC: 5A0935B Assistance with Respiratory Ventilation, Less than 24 Consecutive Hours, Intermittent Negative Airway Pressure (ICD-10-PCS; 2017-02-21)
DX: T51.91XA Toxic effect of unspecified alcohol, accidental (unintentional), initial encounter (principal); J69.0 Pneumonitis due to inhalation of food and vomit; J96.01 Acute respiratory failure with hypoxia; F17.200 Nicotine dependence, unspecified, uncomplicated; E87.6 Hypokalemia; R73.9 Hyperglycemia, unspecified; E83.51 Hypocalcemia; R00.0 Tachycardia, unspecified

== ENCOUNTER → 2017-02-25 | Outpatient (CLI) | payer BC ==
[~2017-02-25] MED LIST: AMOX875T PO; ASPI-390 PO; FLV1 PO; IBUP-1050 PO; THM100 PO
--- NOTE | 2017-02-25 11:26 | DIAGNOSTIC IMAGING REPORT ---
L FOREARM 2 VIEWS ROUTINE CLINICAL HISTORY: Left forearm pain. No trauma. COMPARISON: None FINDINGS: No fracture or osseous lesion is identified within the left radius or ulna. There is no evidence for left elbow joint effusion. IMPRESSION: Unremarkable left forearm radiographs. Electronically signed by: Loc Lee M.D. 02/25/2017 11:25 AM Dictated Date/Time: 02/25/2017 11:24 AM
== END | disposition home or self-care (01) ==
LOC: C.RAD 10:58
PROVIDERS: ATTEND Student in an Organized Health Care Education/Training Program
DX: Z00.00 Encounter for general adult medical examination without abnormal findings (principal)